=== PATIENT | male | born 1975 | race Caucasian/White ===

== ENCOUNTER 2016-12-05 17:14 | Emergency (ER) | payer SELFPAY ==
[~2016-12-05] VITALS: Ht 188 cm; Wt 98.4 kg
[~2016-12-05 17:14] MED LIST: LORTAB 500 MG-71 TAB PO; MULTIVITAMIN1 TA1 PO; NAPROSYN 500MG500 MG PO; NOMEDS
--- NOTE | 2016-12-05 17:54 | Emergency Room Report ---
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 N Clinical Suspician of Infection? N Mental Status: 1 - Regular (Normal Baseline) Sepsis Risk:Possible Sepsis Risk Have you (or family members/close friends) recently traveled outside the [place]? N If Yes, where/when: Have you had exposure to infectious disease within the past month? N TB? Other? 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 ALLERGIES Coded Allergies: Penicillins (Mild, 12/05/16) Home Medications Reported Medications Multiple Vitamin (Multivitamin) 1 TAB PO DAILY History Medical History General CAD? No Angina: No OR: No Hypertension? No Hyperlipidemia? No CHF? No DVT? No PE? No COPD? No Asthma? No Anemia? No GERD? No Gastric ulcers? No GI Bleed? No Hernia? No Thyroid Problems? No Hypothyroidism? No CVA? No Seizures? No Diabetes? No Renal Insuffiency? No End Stage Renal Disease? No UTI? No Stones? No BPH? No GB Disease: No Nephritic Syndrome? No Asplenia? No Hepatitis? No Sickle Cell Disease? No Arthritis? No Migraines? No Cataracts? No Glaucoma? No MRSA? No HIV? No TB? No Anxiety? No Depression? No Cancer? No More? No Immunization Hx DT/Tetanus UNKNOWN Surgical Hx Previous Surgery?N Social History Smoking Hx Smoker: Current Every Day Smoker Tobacco: Yes Type Chew Alcohol Alcohol: Yes Review of Systems All Other Systems Reviewed and Negative Musculoskeletal see HPI Skin see HPI Physical Exam Vital Signs Vital Signs Date Time Temp Pulse Resp B/P Pulse O2 O2 Flow FiO2 Ox Delivery Rate 12/05 1756 98.8 101 22 150/85 100 12/05 1715 98.8 103 22 145/86 97 General Appearance normal appearance, mild distress Eye Exam - bilateral eye normal exam, bilateral eye PERRL Respiratory Status No: respiratory distress. Cardiovascular no peripheral edema, normal peripheral pulses Peripheral Pulses Pulses normal Yes (radial full) Extremities L hand: lac distal/dorsal, third digit 2 cm; bleeding controlled, no tendon exposure; lac to fourth digitdorsal, about three cm, very deep with oozing, unable to tell if tendon exposure; lac to fifth digit palmar aspect, about two cm, bleeding controlled. Has crepitus to fourth and fifth digits but able to move at each joint when held in isolation; states fifth digit always "looks funny in my family". Has brisk CR all digits, and sensate throughout each digit as checked. Fingers warm and pink throughout. Neurologic alert, no motor/sensory deficits, oriented x 3 Medical Decision Making LABS/Meds/Orders Pt receiving controlled substance in ED? No Results/Orders Current Medication Orders Sig/[place] Start time Last Medication Dose Route Stop Time Status Admin Morphine Sulfate 4 MG ONCE ONE 12/05 1800 DC IV 12/05 1800 Ondansetron HCl 4 MG ONCE ONE 12/05 1800 DC IV 12/05 180 Diphtheria/Pertussis/ 0.5 ML ONCE ONE 12/05 173 DC Tetanus Vacc IM 12/05 173 Orders Procedure Date/time Status HAND-LT-3 VIEWS 12/05 172 Active XRAY/CT/US XRAY/CT/US XRAY finger(s) XR interpretation by reviewed by me Xray Results multiple fractures: transverse through proximal MC of fourth and fifth digits; digits not well extended for xray so may be additional fx Consult MD Physician Consult Consult/PCP Dr. Vasquez hand call: ok to wait on ABX, give TdaP,bandage/ splint/xfer Time Called 1756 Reason Transfer to facility (hand call ) Progress ED Progress Notes Date 12/05/16 Time 1805 Comment States rash with PCN; states allergic to he thinks Ibuprofen but not sure. Bleeding controlled at this time; morphine IV. Departure Departure Time of Disposition 1813 Disposition DC/XFER from ER to [facility] Clinical Impression Primary Impression: Open fracture of finger of left hand Qualifiers: Encounter type: initial encounter Finger: ring finger Phalanx: proximal Fracture alignment: nondisplaced Qualified Code: S62.645B - Nondisplaced fracture of proximal phalanx of left ring finger, initial encounter for open fracture Secondary Impressions: Finger fracture, left Qualifiers: Encounter type: initial encounter Finger: little finger Fracture type: open Phalanx: proximal Fracture alignment: displaced Qualified Code: S62.617B - Displaced fracture of proximal phalanx of left little finger, initial encounter for open fracture Condition STABLE ED Critical Care Critical Care No at [id number]
--- NOTE | 2016-12-05 17:54 | Emergency Room Report ---
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 N Clinical Suspician of Infection? N Mental Status: 1 - Regular (Normal Baseline) Sepsis Risk:Possible Sepsis Risk Have you (or family members/close friends) recently traveled outside the [place]? N If Yes, where/when: Have you had exposure to infectious disease within the past month? N TB? Other? 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 ALLERGIES Coded Allergies: Penicillins (Mild, 12/05/16) Home Medications Reported Medications Multiple Vitamin (Multivitamin) 1 TAB PO DAILY History Medical History General CAD? No Angina: No NH: No Hypertension? No Hyperlipidemia? No CHF? No DVT? No PE? No COPD? No Asthma? No Anemia? No GERD? No Gastric ulcers? No GI Bleed? No Hernia? No Thyroid Problems? No Hypothyroidism? No CVA? No Seizures? No Diabetes? No Renal Insuffiency? No End Stage Renal Disease? No UTI? No Stones? No BPH? No GB Disease: No Nephritic Syndrome? No Asplenia? No Hepatitis? No Sickle Cell Disease? No Arthritis? No Migraines? No Cataracts? No Glaucoma? No MRSA? No HIV? No TB? No Anxiety? No Depression? No Cancer? No More? No Immunization Hx DT/Tetanus UNKNOWN Surgical Hx Previous Surgery?N Social History Smoking Hx Smoker: Current Every Day Smoker Tobacco: Yes Type Chew Alcohol Alcohol: Yes Review of Systems All Other Systems Reviewed and Negative Musculoskeletal see HPI Skin see HPI Physical Exam Vital Signs Vital Signs Date Time Temp Pulse Resp B/P Pulse O2 O2 Flow FiO2 Ox Delivery Rate 12/05 1756 98.8 101 22 150/85 100 12/05 1715 98.8 103 22 145/86 97 General Appearance normal appearance, mild distress Eye Exam - bilateral eye normal exam, bilateral eye PERRL Respiratory Status No: respiratory distress. Cardiovascular no peripheral edema, normal peripheral pulses Peripheral Pulses Pulses normal Yes (radial full) Extremities L hand: lac distal/dorsal, third digit 2 cm; bleeding controlled, no tendon exposure; lac to fourth digitdorsal, about three cm, very deep with oozing, unable to tell if tendon exposure; lac to fifth digit palmar aspect, about two cm, bleeding controlled. Has crepitus to fourth and fifth digits but able to move at each joint when held in isolation; states fifth digit always "looks funny in my family". Has brisk CR all digits, and sensate throughout each digit as checked. Fingers warm and pink throughout. Neurologic alert, no motor/sensory deficits, oriented x 3 Medical Decision Making LABS/Meds/Orders Pt receiving controlled substance in ED? No Results/Orders Current Medication Orders Sig/[place] Start time Last Medication Dose Route Stop Time Status Admin Morphine Sulfate 4 MG ONCE ONE 12/05 1800 DC IV 12/05 1800 Ondansetron HCl 4 MG ONCE ONE 12/05 1800 DC IV 12/05 180 Diphtheria/Pertussis/ 0.5 ML ONCE ONE 12/05 173 DC Tetanus Vacc IM 12/05 173 Orders Procedure Date/time Status HAND-LT-3 VIEWS 12/05 172 Active XRAY/CT/US XRAY/CT/US XRAY finger(s) XR interpretation by reviewed by me Xray Results multiple fractures: transverse through proximal MC of fourth and fifth digits; digits not well extended for xray so may be additional fx Consult MD Physician Consult Consult/PCP Dr. Vasquez hand call: ok to wait on ABX, give TdaP,bandage/ splint/xfer Time Called 1756 Reason Transfer to facility (hand call ) Progress ED Progress Notes Date 12/05/16 Time 1805 Comment States rash with PCN; states allergic to he thinks Ibuprofen but not sure. Bleeding controlled at this time; morphine IV. Departure Departure Time of Disposition 1813 Disposition DC/XFER from ER to [facility] Clinical Impression Primary Impression: Open fracture of finger of left hand Qualifiers: Encounter type: initial encounter Finger: ring finger Phalanx: proximal Fracture alignment: nondisplaced Qualified Code: S62.645B - Nondisplaced fracture of proximal phalanx of left ring finger, initial encounter for open fracture Secondary Impressions: Finger fracture, left Qualifiers: Encounter type: initial encounter Finger: little finger Fracture type: open Phalanx: proximal Fracture alignment: displaced Qualified Code: S62.617B - Displaced fracture of proximal phalanx of left little finger, initial encounter for open fracture Condition STABLE ED Critical Care Critical Care No at [id number]
[2016-12-05 18:48] VITALS: BP 150/85
--- NOTE | 2016-12-05 22:26 | RADIOLOGY REPORT PS360 ---
HAND-LT-3 VIEWS HISTORY: Pain following injury put hand in engine fan multiple lacs ORDERING PHYSICIAN: Veronique Parsons MD PATIENT AGE: 41 years COMPARISON: None FINDINGS: Study is somewhat limited as the patient could not extend his fingers. There is a transverse fracture involving mid shaft of the proximal phalanx of the fifth digit with mild dorsal displacement and angulation of the distal fracture fragment. A comminuted fracture involves the mid and distal shaft of the proximal phalanx of the fourth finger mildly displaced dorsally. No other significant anomalies. IMPRESSION: Fractures of the proximal phalanx of the fourth and fifth digit as described above
== END 2016-12-05 18:57 | disposition short-term general hospital (02) ==
LOC: ER 17:14
DX: S62.644B Nondisplaced fracture of proximal phalanx of right ring finger, initial encounter for open fracture (principal); S62.617B Displaced fracture of proximal phalanx of left little finger, initial encounter for open fracture; W31.89XA Contact with other specified machinery, initial encounter; Y92.9 Unspecified place or not applicable; Z88.0 Allergy status to penicillin; Z79.899 Other long term (current) drug therapy; Z23 Encounter for immunization
CPT/HCPCS: J2405